=== PATIENT | female | born 1985 | race Caucasian/White ===

== ENCOUNTER 2020-07-06 14:23 | Emergency (ER) | payer OTHER ==
[~2020-07-06] VITALS: Ht 154.9 cm; Wt 69.4 kg
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
--- NOTE | 2020-07-06 14:55 | NUR ---
DR HUSTON AT BEDSIDE FOR EVAL.
--- NOTE | 2020-07-06 15:02 | NUR ---
PT STATES NO CHANCE OF BEING . WILL SIGN WAIVER. RADIOLOGY AWARE.
--- NOTE | 2020-07-06 15:06 | NUR ---
DORIS CALLED TOOL SHARPENER [phone]
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
[2020-07-06] MEDS ORDERED: IBUP-1955 PO (15:59)
--- NOTE | 2020-07-06 16:08 | NUR ---
DORIS CALLED [facility] WILL NOT COME SINCE PT DOES NOT WISH TO FILE A REPORT.
[2020-07-06 16:09] VITALS: BP 128/76
--- NOTE | 2020-07-06 16:09 | NUR ---
Patient discharged to home in stable condition. Written and verbal after care instructions given. Patient verbalizes understanding of instruction.
== END 2020-07-06 16:10 | disposition home or self-care (01) ==
LOC: ER 14:37
DX: M54.2 Cervicalgia (principal); R51.9 Headache, unspecified; Z98.890 Other specified postprocedural states; Z79.899 Other long term (current) drug therapy
CPT/HCPCS: 70490-TC